=== PATIENT | female | born 1965 | race Two or more races ===

== ENCOUNTER 2017-01-21 12:54 | Emergency (ER) | payer SELFPAY ==
[~2017-01-21] VITALS: Ht 167.6 cm; Wt 72.6 kg
[2017-01-21 13:16] VITALS: BP 185/90
[2017-01-21] MEDS ORDERED: LORazepam 0.5 MG TAB PO ONE (13:45)
[2017-01-21] MEDS ORDERED: KETOROLAC TROMETH 60MG/2ML VIAL IM ONE (13:45)
== END 2017-01-21 15:39 | disposition home or self-care (01) ==
LOC: ER 12:54
DX: S20.212A Contusion of left front wall of thorax, initial encounter (principal); V43.52XA Car driver injured in collision with other type car in traffic accident, initial encounter; Y93.89 Activity, other specified; Y99.8 Other external cause status; Y92.488 Other paved roadways as the place of occurrence of the external cause
CPT/HCPCS: 71111; 96372; 99284; J1885